=== PATIENT | male | born 1970 | race African-American/Black ===

== ENCOUNTER 2017-07-09 13:33 | Emergency (ER) | payer MEDICAID ==
[~2017-07-09] VITALS: Ht 182.9 cm; Wt 79.8 kg
[2017-07-09] MEDS ORDERED: IBUPROFEN 800 MG TAB PO ONE (17:00)
[2017-07-09 17:30] VITALS: BP 115/82
== END 2017-07-09 17:35 | disposition home or self-care (01) ==
LOC: ER 13:33
DX: M25.532 Pain in left wrist (principal); F17.290 Nicotine dependence, other tobacco product, uncomplicated; F12.10 Cannabis abuse, uncomplicated
CPT/HCPCS: 73090; 73110